=== PATIENT | female | born 1945 | race Caucasian/White ===

== ENCOUNTER → 2016-08-28 | Outpatient (CLI) | payer MEDICARE, MEDICAID ==
[~2016-08-28] MED LIST: ACAR25TA PO; ACET-929 PO; ALEN70TA55 PO; ASCO250T13 PO; ATOR20TA50 PO; AZI250T PO; BACL-63 PO; BACL10TA; CITA20TA3 PO; FAM20T PO; FERR325T47 PO; GABA-339 PO; LEVO-28 PO; LOSA25TA9; MAGN400T6; METO25TA5 PO; METR500T14; MULT-351 PO; ONDA4TAB8 PO; OXYB5TAB62 PO; PANT1INJ3 PO; QUE25T PO; THIA100T5 PO; TRAM100T37 PO; TRIA0.1C5 EX; [UNRECOGNIZED DRUG - CODE] PO
== END | disposition home or self-care (01) ==
LOC: Rad HDHVI 11:36
PROVIDERS: ATTEND Internal Medicine Cardiovascular Disease
DX: I49.9 Cardiac arrhythmia, unspecified (principal)
CPT/HCPCS: 93306

== ENCOUNTER → 2016-09-12 | Outpatient (CLI) | payer MEDICARE, MEDICAID ==
[~2016-09-12] MED LIST changes: +ADENOSINE 50 MG in GIVE UN-DILUTED 0 ML IV ONE; +ADENOSINE 90 MG/30 ML INJ IV ONE
== END | disposition home or self-care (01) ==
LOC: Rad HDHVI 10:33
PROVIDERS: ATTEND Internal Medicine Cardiovascular Disease
DX: I10 Essential (primary) hypertension (principal); Z95.0 Presence of cardiac pacemaker; R07.9 Chest pain, unspecified; Z86.73 Personal history of transient ischemic attack (TIA), and cerebral infarction without residual deficits
CPT/HCPCS: 78452; 93005; 96374; 96375; A9500; J0153